=== PATIENT | male | born 1965 | race Caucasian/White ===

== ENCOUNTER 2019-08-25 19:55 | Emergency (ER) | payer OTHER ==
[~2019-08-25] VITALS: Ht 182.9 cm; Wt 108.9 kg
--- NOTE | 2019-08-25 19:55 | NUR ---
PT BIB WIFEC/O L 3RD AND 4TH DIGIT MULTIPLE LACERATION S/P CIRCULAR POWER DRILL INJURY, PT IS AAOX4, NOT IN RESPIRATORY DISTRESS, HOOKED TO MONITOR, KEPT RESTED AND COMFORTABLE, WILL CONTINUE TO MONITOR.
--- NOTE | 2019-08-25 20:27 | NUR ---
SEEN AND EXAMINED BY PAVEL.
[2019-08-25] MEDS ORDERED: TDAP [DIPH/PERTUSSIS/TET] 0.5 ML VIAL IM ONE ×2 (20:30→20:44)
[2019-08-25] MEDS ORDERED: HYDROCODONE/APAP 5/325MG 1 EACH TABLET PO ONE (20:30)
[2019-08-25] MEDS ORDERED: IBUPROFEN 600 MG TABLET PO ONE (20:30)
--- NOTE | 2019-08-25 20:40 | NUR ---
ART DEALER AT BEDSIDE FOR XRAY.
[2019-08-25] MEDS ORDERED: HYDROCODONE/APAP 5/325MG 1 EACH TABLET ONE (20:44)
[2019-08-25] MEDS ORDERED: CEPHALEXIN MONOHYDRATE 500 MG CAPSULE PO ONE ×2 (21:30→21:48)
--- NOTE | 2019-08-25 21:50 | NUR ---
WOUND CLEANING AND DRESSING DONE BY LABORATORY COORDINATOR.
--- NOTE | 2019-08-25 21:59 | NUR ---
Lee sepulveda in ED - 08/25/19 at 2201 by CORNEL Patient discharged to home in stable condition. Written and verbal after care instructions given. Patient verbalizes understanding of instruction.
[2019-08-25 22:01] VITALS: BP 133/72
--- NOTE | 2019-08-25 22:01 | NUR ---
Patient discharged to home in stable condition. Written and verbal after care instructions given. Patient verbalizes understanding of instruction.
== END 2019-08-25 22:06 | disposition home or self-care (01) ==
LOC: ER 20:18
DX: S62.633A Displaced fracture of distal phalanx of left middle finger, initial encounter for closed fracture (principal); S61.215A Laceration without foreign body of left ring finger without damage to nail, initial encounter; E11.9 Type 2 diabetes mellitus without complications; Z88.6 Allergy status to analgesic agent; W26.8XXA Contact with other sharp object(s), not elsewhere classified, initial encounter; Y93.89 Activity, other specified; Y92.89 Other specified places as the place of occurrence of the external cause; Y99.8 Other external cause status
CPT/HCPCS: 12001; 29130; 73140; 90471; 90715; 99283; A6403